=== PATIENT | female | born 1950 | race Caucasian/White ===

== ENCOUNTER 2018-01-31 20:49 | Emergency (ER) | payer OTHER ==
[~2018-01-31] VITALS: Ht 157.5 cm; Wt 77.1 kg
[~2018-01-31 20:49] MED LIST: AVALIDE 150-12.1 TA1; DIABETA5 MG; METFORMIN HCL500 M1; TRICOR145 MG
[2018-01-31] MEDS ORDERED: LISINOPRIL10 MG (21:11)
[2018-01-31] MEDS ORDERED: NORVASC2.5 M1 (21:12)
[2018-01-31] MEDS ORDERED: GLUCOTROL XL5 MG (21:12)
[2018-02-01] MEDS ORDERED: DOLOGESIC 500-1 EACH PO (03:07)
== END 2018-02-01 03:10 | disposition home or self-care (01) ==
LOC: ER 20:49
DX: R51 Headache (principal); I10 Essential (primary) hypertension; S00.93XS Contusion of unspecified part of head, sequela; W18.09XS Striking against other object with subsequent fall, sequela

== ENCOUNTER 2018-02-22 09:28 | Inpatient (IN) | payer OTHER ==
[~2018-02-22] VITALS: Ht 157.5 cm; Wt 77.1 kg
[~2018-02-22 09:28] MED LIST changes: +DOLOGESIC 500-1 EACH PO; +GLUCOTROL XL5 MG; +LISINOPRIL10 MG; +NORVASC2.5 M1
[2018-04-26] MEDS ORDERED: PERCOCET 10-321 EACH PO (13:17)
[2018-05-04] MEDS ORDERED: NEURONTIN800 MG PO (09:12)
[2018-05-04] MEDS ORDERED: COLACE100 MG PO (09:12)
[2018-05-04] MEDS ORDERED: CLONAZEPAM1 MG PO (09:14)
[2018-05-04] MEDS ORDERED: PERCOCET 5-3251 EACH PO (09:14)
[2018-05-04] MEDS ORDERED: CIPROFLOXACIN750 MG PO (09:14)
== END 2018-05-05 18:20 | DRG 455 ==
LOC: O/R 05-04 05:00 → SURH 05-04 11:00 → SURG 05-04 15:29 → SURH 05-04 16:00 → SURG 05-05 18:20
PROVIDERS: Orthopaedic Surgery Orthopaedic Surgery of the Spine
PROC: 0SG00A0 Fusion of Lumbar Vertebral Joint with Interbody Fusion Device, Anterior Approach, Anterior Column, Open Approach (ICD-10-PCS; 2018-05-04)
PROC: 07DS3ZZ Extraction of Vertebral Bone Marrow, Percutaneous Approach (ICD-10-PCS; 2018-05-04)
PROC: 0ST20ZZ Resection of Lumbar Vertebral Disc, Open Approach (ICD-10-PCS; 2018-05-04)
PROC: 0SG0071 Fusion of Lumbar Vertebral Joint with Autologous Tissue Substitute, Posterior Approach, Posterior Column, Open Approach (ICD-10-PCS; principal; 2018-05-04 16:00)
DX: M48.061 Spinal stenosis, lumbar region without neurogenic claudication (principal); M43.16 Spondylolisthesis, lumbar region; M51.16 Intervertebral disc disorders with radiculopathy, lumbar region; E11.9 Type 2 diabetes mellitus without complications; I10 Essential (primary) hypertension

== ENCOUNTER 2018-07-24 00:41 | Emergency (ER) | payer OTHER ==
[~2018-07-24] VITALS: Ht 157.5 cm; Wt 76.2 kg
[~2018-07-24 00:41] MED LIST changes: +CIPROFLOXACIN750 MG PO; +CLONAZEPAM1 MG PO; +COLACE100 MG PO; +NEURONTIN800 MG PO; +PERCOCET 10-321 EACH PO; +PERCOCET 5-3251 EACH PO
[2018-07-24] MEDS ORDERED: ZOVIRAX30 GM TOP (03:05)
[2018-07-24] MEDS ORDERED: ULTRAM50 MG PO (03:05)
[2018-07-24] MEDS ORDERED: VALTREX1000 MG PO (03:05)
[2018-07-24] MEDS ORDERED: PERCOCET 5-3251 EACH PO (03:22)
== END 2018-07-24 03:26 | disposition home or self-care (01) ==
LOC: ER 00:41
DX: B02.8 Zoster with other complications (principal)

== ENCOUNTER 2018-10-20 19:49 | Emergency (ER) | payer OTHER ==
[~2018-10-20] VITALS: Ht 157.5 cm; Wt 74.8 kg
[~2018-10-20 19:49] MED LIST changes: +ULTRAM50 MG PO; +VALTREX1000 MG PO; +ZOVIRAX30 GM TOP
== END 2018-10-20 22:35 | disposition home or self-care (01) ==
LOC: ER 19:49
DX: E11.42 Type 2 diabetes mellitus with diabetic polyneuropathy (principal)

== ENCOUNTER 2020-07-29 10:31 | Outpatient (CLI) | payer OTHER | END 2020-07-29 15:55 | disposition home or self-care (01) | LOC: PPH VACUNA 10:31 | PROVIDERS: ATTEND Emergency Medicine Pediatric Emergency Medicine | DX: Z23 Encounter for immunization (principal) ==

== ENCOUNTER → 2020-08-19 | Outpatient (CLI) | payer OTHER | END | disposition home or self-care (01) | LOC: PPH VACUNA | PROVIDERS: ATTEND Emergency Medicine Pediatric Emergency Medicine | DX: Z23 Encounter for immunization (principal) ==

== ENCOUNTER 2021-01-22 17:48 | Emergency (ER) | payer OTHER ==
[~2021-01-22] VITALS: Ht 157.5 cm; Wt 71.2 kg
[2021-01-22] MEDS ORDERED: FENOFIBRATE160 MG PO (18:11)
[2021-01-22] MEDS ORDERED: NORVASC2.5 MG PO (18:12)
[2021-01-22] MEDS ORDERED: GLIPIZIDE ER5 MG PO (18:12)
[2021-01-22] MEDS ORDERED: JARDIANCE25 MG PO (18:12)
[2021-01-22] MEDS ORDERED: CYMBALTA60 MG PO (18:12)
[2021-01-22] MEDS ORDERED: NAPROXEN250 MG PO (22:08)
== END 2021-01-22 22:16 | disposition home or self-care (01) ==
LOC: ER 17:48
DX: K57.30 Diverticulosis of large intestine without perforation or abscess without bleeding (principal); R10.11 Right upper quadrant pain; R10.12 Left upper quadrant pain

== ENCOUNTER 2022-07-12 17:03 | Emergency (ER) | payer OTHER ==
[~2022-07-12] VITALS: Ht 157.5 cm; Wt 69.9 kg
[~2022-07-12 17:03] MED LIST changes: +CYMBALTA60 MG PO; +FENOFIBRATE160 MG PO; +GLIPIZIDE ER5 MG PO; +JARDIANCE25 MG PO; +NAPROXEN250 MG PO; +NORVASC2.5 MG PO
[2022-07-12] MEDS ORDERED: PROTONIX40 M1 PO (18:10)
== END 2022-07-12 22:57 | disposition home or self-care (01) ==
LOC: ER 17:03
DX: B34.9 Viral infection, unspecified (principal); Z88.0 Allergy status to penicillin; Z88.2 Allergy status to sulfonamides; K29.70 Gastritis, unspecified, without bleeding; E11.65 Type 2 diabetes mellitus with hyperglycemia; Z79.84 Long term (current) use of oral hypoglycemic drugs; K57.30 Diverticulosis of large intestine without perforation or abscess without bleeding; N20.0 Calculus of kidney

== ENCOUNTER 2023-07-02 16:00 | Emergency (ER) | payer OTHER ==
[~2023-07-02] VITALS: Ht 157.5 cm; Wt 67.1 kg
[~2023-07-02 16:00] MED LIST changes: +PROTONIX40 M1 PO
[2023-07-02] MEDS ORDERED: GABAPENTIN800 M1 (16:39)
[2023-07-02 18:36] LABS: HEMATOCRIT 38.3 % (36.0-45.00); HEMOGLOBIN 12.6 g/dL (12.0-15.00); MEAN CELL VOLUME 91.5 fL (80.00-100.00); MEAN CORPUSCULAR HEMOGLOBIN 30.2 pg (27.00-32.0); PLATELET COUNT 284 K/uL (150-450); RED BLOOD COUNT 4.19 M/uL (4.00-6.00); RED CELL DISTRIBUTION WIDTH 13.8 % (11.5-14.5)
[2023-07-02 18:59] LABS: URINE EPITHELIAL CELLS 13.7 uL (0.0-38.8); URINE RBC 8.9 uL (0.0-20.8); URINE WBC 14.5 uL (0.0-23.2)
[2023-07-02 19:01] LABS: CALCIUM 9.8 mg/dL (8.5-10.1); CREATININE SERUM 1.18 mg/dL (0.55-1.02); GFR 45.02; POTASSIUM 4.24 mEq/L (3.5-5.1)
[2023-07-02 19:31] LABS: URINE APPEARANCE Clear; URINE BILIRRUBIN Negative (NEGATIVE); URINE BLOOD Negative; URINE COLOR Yellow; URINE LEUKOCYTE Negative; URINE NITRATE Negative; URINE PROTEIN Negative (NEGATIVE); URINE UROBILINOGEN 0.2 E.U./dl
[2023-07-02 19:39] LABS: URINE GLUCOSE >=1000 MG/DL (NEGATIVE)
== END 2023-07-02 20:32 | disposition home or self-care (01) ==
LOC: ER 16:01
DX: U07.1 COVID-19 (principal); R73.9 Hyperglycemia, unspecified; Z88.0 Allergy status to penicillin
CPT/HCPCS: 36415; 93005; 96365; 99283; J1815

== ENCOUNTER 2024-06-01 08:00 | Outpatient (CLI) | payer OTHER ==
[~2024-06-01] VITALS: Ht 61 cm; Wt 69.9 kg
[~2024-06-01 08:00] MED LIST changes: +GABAPENTIN800 M1
[2024-06-01 10:46] VITALS: BP 156/63
[2024-06-01 10:48] LABS: HEMATOCRIT 35.9 % (36.0-45.00); HEMOGLOBIN 11.9 g/dL (12.0-15.00); MEAN CELL VOLUME 92.3 fL (80.00-100.00); MEAN CORPUSCULAR HEMOGLOBIN 30.6 pg (27.00-32.0); MEAN CORPUSCULAR HGB CONC 33.2 g/dl (32.0-36.0); PLATELET COUNT 292 K/uL (150-450); RED BLOOD COUNT 3.89 M/uL (4.00-6.00); RED CELL DISTRIBUTION WIDTH 13.8 % (11.5-14.5)
[2024-06-01 10:51] LABS: URINE APPEARANCE Clear; URINE BILIRRUBIN Negative (NEGATIVE); URINE BLOOD Negative; URINE COLOR Yellow; URINE GLUCOSE Negative (NEGATIVE); URINE KETONE Negative (NEGATIVE); URINE LEUKOCYTE Small; URINE NITRATE Positive; URINE PROTEIN Negative (NEGATIVE); URINE UROBILINOGEN 0.2 E.U./dl
[2024-06-01 10:55] LABS: URINE EPITHELIAL CELLS 10.5 uL (0.0-38.8); URINE WBC 82.8 uL (0.0-23.2)
[2024-06-01 11:05] LABS: URINE BACTERIA > 9821.5 uL (0.0-1933); URINE CAST 0.15 uL (0.0-1.40); URINE RBC 1.5 uL (0.0-20.8)
[2024-06-01 11:15] LABS: INR 0.95; PARTIAL THROMBOPLASTIN TIME 27.6 SECONDS (22.0-34.0); PROTHROMBIN TIME 10.4 SECONDS (9.0-11.5)
[2024-06-01 12:23] LABS: BILIRUBIN TOTAL 0.39 mg/dL (0.3-1.2); CALCIUM 9.8 mg/dL (8.5-10.1); CHOL HDL RATIO 4.1 (0-5.0); CREATININE SERUM 0.78 mg/dL (0.55-1.02); GFR 72.39; GLOBULINA 3.7 G/DL (2.4-3.5); POTASSIUM 4.61 mEq/L (3.5-5.1); TOTAL PROTEIN 7.7 gm/dL (6.4-8.2)
[2024-06-01 12:56] LABS: RH POSITIVE
== END 2024-06-01 08:01 | disposition home or self-care (01) ==
LOC: RAD 08:00 → EDSTATUS 06-12 08:30 → SURH 06-12 08:30
PROVIDERS: ATTEND Orthopaedic Surgery
DX: M17.12 Unilateral primary osteoarthritis, left knee (principal); D64.9 Anemia, unspecified; R10.9 Unspecified abdominal pain; Z79.01 Long term (current) use of anticoagulants; N39.0 Urinary tract infection, site not specified; E78.5 Hyperlipidemia, unspecified; D68.9 Coagulation defect, unspecified; Z20.828 Contact with and (suspected) exposure to other viral communicable diseases; Z03.818 Encounter for observation for suspected exposure to other biological agents ruled out; R05.2 Subacute cough

== ENCOUNTER 2024-08-14 09:00 | Inpatient (IN) | payer OTHER ==
[~2024-08-14] VITALS: Ht 157.5 cm; Wt 69.9 kg
[2024-08-15] MEDS ORDERED: ACTOS30 MG PO (10:46)
[2024-08-15] MEDS ORDERED: ZETIA10 MG PO (10:47)
[2024-08-15] MEDS ORDERED: GLIMEPIRIDE4 MG (10:47)
[2024-08-15] MEDS ORDERED: MULTI VITAMIN1 EACH PO (10:48)
[2024-08-15] MEDS ORDERED: NEURONTIN800 MG PO (10:48)
[2024-08-15 10:58] VITALS: BP 161/85
[2024-08-15 11:15] LABS: HEMATOCRIT 39.2 % (36.0-45.00); HEMOGLOBIN 12.8 g/dL (12.0-15.00); MEAN CELL VOLUME 91.2 fL (80.00-100.00); MEAN CORPUSCULAR HEMOGLOBIN 29.8 pg (27.00-32.0); MEAN CORPUSCULAR HGB CONC 32.6 g/dl (32.0-36.0); PLATELET COUNT 249 K/uL (150-450); RED CELL DISTRIBUTION WIDTH 14.1 % (11.5-14.5)
[2024-08-15 11:35] LABS: INR 0.94; PARTIAL THROMBOPLASTIN TIME 26.2 SECONDS (22.0-34.0); PROTHROMBIN TIME 10.3 SECONDS (9.0-11.5)
[2024-08-15 11:49] LABS: URINE EPITHELIAL CELLS 18.3 uL (0.0-38.8); URINE WBC 125.5 uL (0.0-23.2)
[2024-08-15 11:53] LABS: URINE APPEARANCE Clear; URINE BILIRRUBIN Negative (NEGATIVE); URINE BLOOD Negative; URINE COLOR Yellow; URINE GLUCOSE Negative (NEGATIVE); URINE KETONE Negative (NEGATIVE); URINE LEUKOCYTE Small; URINE NITRATE Positive; URINE PROTEIN 30 (NEGATIVE); URINE UROBILINOGEN 0.2 E.U./dl
[2024-08-15 11:55] LABS: URINE BACTERIA > 9821.5 uL (0.0-1933); URINE CAST 1.03 uL (0.0-1.40); URINE RBC 1.3 uL (0.0-20.8)
[2024-08-15 12:28] LABS: ALBUMIN 3.9 gm/dL (3.4-5.0); BILIRUBIN TOTAL 0.41 mg/dL (0.3-1.2); CALCIUM 9.9 mg/dL (8.5-10.1); CREATININE SERUM 0.83 mg/dL (0.55-1.02); GFR 67.38; GLOBULINA 3.9 G/DL (2.4-3.5); POTASSIUM 4.64 mEq/L (3.5-5.1); TOTAL PROTEIN 7.8 gm/dL (6.4-8.2)
[2024-08-15 12:59] LABS: RH POSITIVE
[2024-08-21] MEDS ORDERED: VANCOMYCIN HCL 1,000 MG VIAL ONE ×3 (15:50→21:07)
[2024-08-21] MEDS ORDERED: TRANEXAMIC ACID 100MG/1ML (1000MG) AMPUL IV ONE (17:05)
[2024-08-21] MEDS ORDERED: BUPIVACAINE HCL/MPF 0.5% 30ML VIAL ONE (17:06)
[2024-08-21] MEDS ORDERED: KETOROLAC TROMETHAMINE 60 MG VIAL IM ONE (17:06)
[2024-08-21] MEDS ORDERED: LIDOCAINE HCL 1%/EPINEPHRINE 20ML VIAL IJ ONE (17:06)
[2024-08-21] MEDS ORDERED: SODIUM CHLORIDE 0.45 % 1,000 ML IV SCH (18:00)
[2024-08-21] MEDS ORDERED: OxyCODONE HCL 5 MG TABLET (ROXICODONE) PO PRN (18:00)
[2024-08-21] MEDS ORDERED: ACETAMINOPHEN 500 MG GEL..CAP PO SCH (18:00)
[2024-08-21] MEDS ORDERED: ONDANSETRON HCL 2 MG/ML VIAL IV PRN (18:00)
[2024-08-21] MEDS ORDERED: MORPHINE SULFATE 4 MG/ML CARTRIDGE IV PRN (18:00)
[2024-08-21] MEDS ORDERED: VANCOMYCIN HCL 1,000 MG VIAL IR ONE (18:30)
[2024-08-21] MEDS ORDERED: MORPHINE SULFATE 4 MG/ML VIAL IV ONE ×2 (20:15→21:15)
[2024-08-21] MEDS ORDERED: VANCOMYCIN HCL 1,000 MG in 0.9 % SODIUM CHLORIDE 250 ML IV SCH (21:00)
[2024-08-21] MEDS ORDERED: hydrALAZINE HCL 20 MG VIAL ONE (21:11)
[2024-08-21] MEDS ORDERED: hydrALAZINE HCL 20 MG VIAL IV PRN (21:15)
[2024-08-22] MEDS ORDERED: GABAPENTIN 300 MG CAPSULE PO SCH (01:00)
[2024-08-22 01:31] VITALS: BP 133/60; O2SAT 95
[2024-08-22 07:59] LABS: HEMATOCRIT 32.1 % (36.0-45.00); HEMOGLOBIN 10.9 g/dL (12.0-15.00); MEAN CELL VOLUME 89.7 fL (80.00-100.00); MEAN CORPUSCULAR HEMOGLOBIN 30.5 pg (27.00-32.0); PLATELET COUNT 213 K/uL (150-450); RED BLOOD COUNT 3.58 M/uL (4.00-6.00); RED CELL DISTRIBUTION WIDTH 14.5 % (11.5-14.5)
[2024-08-22 08:30] VITALS: BP 119/72; O2SAT 95
[2024-08-22] MEDS ORDERED: ELIQUIS2.5 MG PO (08:32)
[2024-08-22] MEDS ORDERED: PERCOCET 5-3251 EACH PO (08:32)
[2024-08-22] MEDS ORDERED: CIPRO500 MG PO (08:32)
[2024-08-22] MEDS ORDERED: SENNOSIDES 1 TAB TABLET PO SCH (09:00)
[2024-08-22] MEDS ORDERED: APIXABAN 2.5 MG TABLET PO SCH (09:00)
[2024-08-22] MEDS ORDERED: DEXTROSE 50 % IN WATER 0.5 G/ML VIAL IV PRN (15:30)
[2024-08-22] MEDS ORDERED: INSULIN LISPRO 1,000 UNIT/10 ML UNITS SUBCUTANEO PRN (15:30)
[2024-08-22 16:00] VITALS: BP 162/52; O2SAT 97
[2024-08-22] MEDS ORDERED: VITAMIN B COMPLEX 1 EACH PO SCH (17:28)
[2024-08-22] MEDS ORDERED: SOD FERRIC GLUC COMPLX/SUCROSE 62.5 MG/5 ML AMPUL IV SCH (17:28)
[2024-08-22] MEDS ORDERED: Cyanocobalamin/Mecobalamin 1 TAB.SL SL SCH (17:28)
[2024-08-22] MEDS ORDERED: LISINOPRIL 10 MG TABLET PO SCH (18:00)
[2024-08-23] VITALS: BP 158/61; O2SAT 96
[2024-08-23 07:00] LABS: HEMATOCRIT 31.9 % (36.0-45.00); HEMOGLOBIN 10.8 g/dL (12.0-15.00); MEAN CELL VOLUME 89.8 fL (80.00-100.00); MEAN CORPUSCULAR HEMOGLOBIN 30.4 pg (27.00-32.0); MEAN CORPUSCULAR HGB CONC 33.9 g/dl (32.0-36.0); PLATELET COUNT 206 K/uL (150-450); RED BLOOD COUNT 3.55 M/uL (4.00-6.00); RED CELL DISTRIBUTION WIDTH 14.6 % (11.5-14.5)
[2024-08-23 08:00] VITALS: BP 133/52
[2024-08-23] MEDS ORDERED: IRON FUM,PS/FOLIC ACID/VITC/B3 1 CAP CAPSULE PO SCH (09:00)
[2024-08-23 16:00] VITALS: BP 144/72; O2SAT 96
[2024-08-24] VITALS: BP 168/80; O2SAT 95
[2024-08-24] MEDS ORDERED: MORPHINE SULFATE 4 MG/ML CARTRIDGE IV PRN (02:00)
[2024-08-24 08:00] VITALS: BP 157/69
[2024-08-24] MEDS ORDERED: OxyCODONE HCL 5 MG TABLET (ROXICODONE) PO PRN (12:30)
[2024-08-24 16:00] VITALS: BP 141/69
== END 2024-08-24 16:05 | disposition home or self-care (01) | DRG 470 ==
LOC: SURG 08-21 06:15 → O/R 08-21 06:15 → SURH 08-21 09:15 → SURG 08-21 20:08
PROVIDERS: ADMIT Orthopaedic Surgery; ATTEND Orthopaedic Surgery
PROC: 0SND0ZZ Release Left Knee Joint, Open Approach (ICD-10-PCS; 2024-08-21)
PROC: 0SUD07Z Supplement Left Knee Joint with Autologous Tissue Substitute, Open Approach (ICD-10-PCS; 2024-08-21)
PROC: 0SR Lower Joints, Replacement (ICD-10-PCS; principal; 2024-08-21 20:00)
DX: M17.12 Unilateral primary osteoarthritis, left knee (principal); M22.12 Recurrent subluxation of patella, left knee; E66.01 Morbid (severe) obesity due to excess calories

== ENCOUNTER 2025-01-03 16:47 | Emergency (ER) | payer OTHER ==
[~2025-01-03] VITALS: Ht 157.5 cm; Wt 69.9 kg
[~2025-01-03 16:47] MED LIST changes: +ACTOS30 MG PO; +CIPRO500 MG PO; +ELIQUIS2.5 MG PO; +GLIMEPIRIDE4 MG; +MULTI VITAMIN1 EACH PO; +ZETIA10 MG PO
[2025-01-03] MEDS ORDERED: AMBIEN5 MG PO (17:50)
[2025-01-03 22:40] LABS: BASO % 0.8 % (0.1-1.2); EOS # 0.18 (0.04-0.54); EOS % 2.4 % (0.7-7.0); HEMATOCRIT 36.5 % (34.1-44.9); HEMOGLOBIN 11.6 g/dL (11.2-15.7); LYMPH # 2.21 (1.18-3.74); LYMPH % 29.3 % (19.3-53.1); MEAN CORPUSCULAR HEMOGLOBIN 28.3 pg (25.6-32.2); MONO # 0.52 (0.24-0.82); MONO % 6.9 % (4.7-12.5); NEUT # 4.55 (1.56-6.13); NEUT % 60.3 % (34.0-71.1); PLATELET COUNT 325 K/uL (163-369); RED CELL DISTRIBUTION WIDTH 14.3 % (11.6-14.4)
[2025-01-03 22:59] LABS: ALBUMIN 3.9 gm/dL (3.4-5.0); BILIRUBIN TOTAL 0.3 mg/dL (0.3-1.2); CREATININE SERUM 0.94 mg/dL (0.55-1.02); GFR 58.37; GLOBULINA 4.6 G/DL (2.4-3.5); POTASSIUM 4.05 mEq/L (3.5-5.1); TOTAL PROTEIN 8.5 gm/dL (6.4-8.2)
[2025-01-03 23:03] LABS: COVID-19 AG NEGATIVE (NEGATIVE)
[2025-01-03 23:18] LABS: INFLUENZA A AG NEGATIVE (NEGATIVE); INFLUENZA B AG NEGATIVE (NEGATIVE)
== END 2025-01-04 00:09 | disposition home or self-care (01) ==
LOC: ER 17:13
PROVIDERS: Preventive Medicine Public Health & General Preventive Medicine
DX: R00.2 Palpitations (principal); Z20.822 Contact with and (suspected) exposure to COVID-19; I10 Essential (primary) hypertension; E11.9 Type 2 diabetes mellitus without complications; Z88.0 Allergy status to penicillin